=== PATIENT | female | born 1975 | race Native Hawaiian/Other Pacific Islander ===

== ENCOUNTER 2018-03-10 09:43 | Outpatient (CLI) | payer OTHER | END 2018-03-10 19:50 | disposition home or self-care (01) | LOC: MAMMO 09:43 | DX: Z12.31 Encounter for screening mammogram for malignant neoplasm of breast (principal) ==

== ENCOUNTER 2018-03-16 13:03 | Outpatient (CLI) | payer OTHER | END 2018-03-16 22:15 | disposition home or self-care (01) | LOC: MAMMO 13:03 | DX: R92.8 Other abnormal and inconclusive findings on diagnostic imaging of breast (principal) ==